=== PATIENT | female | born 1985 | race Caucasian/White ===

== ENCOUNTER 2018-03-28 06:09 | Emergency (ER) | payer OTHER ==
[2018-03-28] MEDS ORDERED: Al Hydrox/Mg Hydrox/Simet LIQ* 30 ML UDC PO ONE (06:33)
[2018-03-28] MEDS ORDERED: Lidocaine 2% VISCOUS* 15 ML UDC PO ONE (06:33)
--- NOTE | 2018-03-28 06:35 | ED ---
Complex/Multi-Sys Presentation - HPI Summary HPI Summary: Pt. is a 33-year-old female who presents emergency department for a complaints of pain to her ribs, shoulders and arms since last night. Patient states she was with friends and had 2 glasses of what she believes was scotch. Patient states she does not typically drink alcohol. Patient states she threw up once after drinking last night. Today she denies nausea, abdominal pain or diarrhea. She does have a history of acid reflux and does not take medication on daily basis. She otherwise denies chest pain, shortness of breath, urinary symptoms, vaginal discharge or bleeding. Patient does not recall any injuries or exacerbating factors. Pain is not worse with movement. She is no significant past medical history. Symptoms are mild in severity. - History Of Current Complaint Chief Complaint: EDAbdPain Time Seen by Provider: 03/28/18 06:21 Hx Obtained From: Patient - Allergies/Home Medications Allergies/Adverse Reactions: Allergies Allergy/AdvReac Type Severity Reaction Status Date / Time No Known Allergies Allergy Verified 03/28/18 06:12 Home Medications: Home Medications Bismuth Subsalicylate [Pepto-Bismol] 15 ml PO Q8H PRN 03/28/18 [History Confirmed 03/28/18] Calcium Carbonate CHEW TAB* [Tums*] 500 mg PO Q4H PRN 03/28/18 [History Confirmed 03/28/18] Claritin 10 MG TAB(NF) 10 mg PO DAILY 03/28/18 [History Confirmed 03/28/18] Modafinil 200 mg PO DAILY 03/28/18 [History Confirmed 03/28/18] Mometasone Furoate 1 spray BOTH NARES DAILY 03/28/18 [History Confirmed 03/28/18 ] [place] 3 1,000 mg Softgel 2,000 mg PO DAILY 03/28/18 [History Confirmed 03/28/18] lamoTRIgine [Lamotrigine ER] 150 mg PO DAILY 03/28/18 [History Confirmed ] PMH/Surg Hx/FS Hx/Imm Hx Previously Healthy: Yes Endocrine/Hematology History: Denies: Hx Diabetes Cardiovascular History: Denies: Hx Hypertension, Hx Pacemaker/ICD History: Denies: Hx Renal Disease Sensory History: Denies: Hx Hearing Aid Psychiatric History: Reports: Hx Panic Disorder - PTSD/ANXIETY - Surgical History Surgery Procedure, Year, and Place: RIGHT BREAST BIOPSY 2002. WISDOM TEETH 2010. TONSILS 2010 Infectious Disease History: No Infectious Disease History: Denies: Traveled Outside the [place] in Last 30 Days - Social History Occupation: Employed Full-time Lives: Alone Alcohol Use: Rare Substance Use Type: Reports: None Smoking Status (MU): Former Smoker Review of Systems Constitutional: Negative Eyes: Negative ENT: Negative Cardiovascular: Negative Negative: Palpitations, Chest Pain Respiratory: Negative Negative: Shortness Of Breath, Cough Gastrointestinal: Negative Negative: Abdominal Pain, Vomiting, Diarrhea, Nausea Genitourinary: Negative Positive: Other - Pain to rib, shoulders and arms. Skin: Negative Neurological: Negative All Other Systems Reviewed And Are Negative: Yes Physical Exam Triage Information Reviewed: Yes Vital Signs On Initial Exam: Initial Vitals Temp Pulse Resp BP Pulse Ox 97.4 F 89 16 127/91 96 03/28/18 06:13 03/28/18 06:13 03/28/18 06:13 03/28/18 06:13 03/28/18 06:13 Vital Signs Reviewed: Yes Appearance: Positive: Well-Appearing - Pt. sitting up in bed in NAD. Very anxious. Skin: Positive: Warm Head/Face: Positive: Normal Head/Face Inspection Eyes: Positive: Normal ENT: Positive: Pharynx normal, TMs normal. Negative: Tonsillar swelling, Tonsillar exudate Neck: Positive: Supple Respiratory/Lung Sounds: Positive: Clear to Auscultation, Breath Sounds Present Cardiovascular: Positive: Normal, RRR Abdomen Description: Positive: Nontender, Soft Musculoskeletal: Positive: Normal Neurological: Positive: Normal, CN Intact II-III Psychiatric: Positive: Affect/Mood Appropriate Diagnostics - Vital Signs Vital Signs Temp Pulse Resp BP Pulse Ox 03/28/18 06:13 97.4 F 89 16 127/91 96 - Laboratory Lab Statement: Any lab studies that have been ordered have been reviewed, and results considered in the medical decision making process. Complex Multi-Symp Course/Dx Course Of Treatment: Pt. presenting with very vague complaints of pain to her ribs and upper extremities. Pt. was drinking ETOH last night which she does not typically do and she has hx of GERD. She has no reproducible abd. pain on exam. She is afebrile with stable vital signs. PERC score is zero. Suspect her symptoms are secondary to GERD. Will try a GI cocktail and reassess. On re- exam pt. is still c/o pain. Tylenol given. On re-exam pt. state pain now is her left posterior neck and feels like a muscle cramp. Pt. does have a hx of back pain and has had MRIs of entire spine in the past. Pt. is very anxious. Recommend a muscle relaxer and PPI. Recommend tylenol or motrin as directed. Apply warm compresses. Avoid ETOH, caffeine, spice, acid. Close f.u with PCP and return to ER if sxs change or worsen. Pt. is agreeable with this plan. - Diagnoses Provider Diagnoses: Muscle spasm, GERD (gastroesophageal reflux disease) Discharge - Sign-Out/Discharge Documenting (check all that apply): Patient Departure - Discharge Plan Condition: Good Disposition: HOME Prescriptions: Cyclobenzaprine TAB* [Flexeril 10 MG TAB*] 10 mg PO Q8H #9 tab Pantoprazole TAB (NF) [Protonix TAB (NF)] 40 mg PO DAILY #30 tab Patient Education Materials: Gastroesophageal Reflux Disease (ED), Muscle Spasm (ED) Referrals: Saritha Valdivia MD [Primary Care Provider] - Additional Instructions: Call your PCP today to schedule a follow up appointment Take medication as directed Tylenol or Motrin for pain as directed Apply warm compresses to back Increase fluids Return to ER if symptoms change or worsen - Billing Disposition and Condition Condition: GOOD Disposition: Home
[2018-03-28] MEDS ORDERED: Acetaminophen TAB* 325 MG PO ONE (07:34)
[2018-03-28 08:30] VITALS: BP 123/90
== END 2018-03-28 08:29 | disposition home or self-care (01) ==
LOC: ED 06:09
DX: K21.9 Gastro-esophageal reflux disease without esophagitis (principal); M62.838 Other muscle spasm; Z87.891 Personal history of nicotine dependence
CPT/HCPCS: 99282; A9270-GY